=== PATIENT | male | born 1990 | race American Indian/Alaskan Native ===

== ENCOUNTER 2017-01-22 17:21 | Emergency (ER) | payer MEDICAID, OTHER ==
[2017-01-22 17:21] VITALS: BMI 25.8
[2017-01-22 17:28] VITALS: BP 117/62; PULSE 93; RESP 18; TEMP 98; O2SAT 99
[2017-01-22] MEDS ORDERED: Sodium Chloride 0.9% 1,000 ML IV STA (17:55)
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
[2017-01-22 18:26] LABS: BASO # 0.1 K/uL (0.0-0.2); BASO % 0.5 % (0.0-2.0); EOS % 0.2 % (0.0-4.0); HEMOGLOBIN 15.4 g/dL (12.0-18.0); LYMPH # 1.6 K/uL (1.0-4.3); MEAN CELL VOLUME 92.8 fl (80.0-94.0); MEAN CORPUSCULAR HEMOGLOBIN 30.5 pg (27.0-31.0); MEAN CORPUSCULAR HGB CONC 32.9 g/dL (33.0-37.0); MEAN PLATELET VOLUME 8.6 fl (7.2-11.7); MONO # 0.8 K/uL (0.0-0.8); MONO % 7.6 % (0.0-10.0); NEUT # 8.4 K/uL (1.8-7.0); NEUT % 76.7 % (50.0-75.0); RBC 5.06 Mil/uL (4.40-5.90); WHITE BLOOD COUNT 10.9 K/uL (4.8-10.8)
[2017-01-22 18:48] LABS: ALB/GLOB RATIO 1.4 (1.0-2.1); ALBUMIN 4.9 g/dL (3.5-5.0); ALT/SGPT 30 U/L (21-72); AST/SGOT 51 U/L (17-59); BLOOD UREA NITROGEN 14 mg/dl (9-20); GFR AFRICAN-AMERICAN > 60; GFR NON-AFRICAN AMERICAN > 60
[2017-01-22 19:43] LABS: BARBITURATES, UR NEGATIVE (NEGATIVE); OPIATES, UR NEGATIVE (NEGATIVE); PHENCYCLIDINE, UR NEGATIVE (NEGATIVE)
[2017-01-22 20:08] LABS: BENZODIAZEPINES, UR POSITIVE (NEGATIVE)
--- NOTE | 2017-01-23 09:07 | CT ---
PROCEDURE: CT HEAD WITHOUT CONTRAST. HISTORY: Syncope with resultant fall, headache COMPARISON: None available. TECHNIQUE: Axial computed tomography images were obtained through the head/brain without intravenous contrast. Radiation dose: Total exam DLP = 887 mGy-cm. This CT exam was performed using one or more of the following dose reduction techniques: Automated exposure control, adjustment of the mA and/or kV according to patient size, and/or use of iterative reconstruction technique. FINDINGS: HEMORRHAGE: No intracranial hemorrhage. BRAIN: No mass effect or edema. No atrophy or chronic microvascular ischemic changes. VENTRICLES: Unremarkable. No hydrocephalus. CALVARIUM: Unremarkable. PARANASAL SINUSES: Unremarkable as visualized. No significant inflammatory changes. MASTOID AIR CELLS: Unremarkable as visualized. No inflammatory changes. OTHER FINDINGS: None. IMPRESSION: Normal CT of the Head.
--- NOTE | 2017-01-23 09:28 | CT ---
PROCEDURE: CT MAXILLOFACIAL BONES WITHOUT CONTRAST HISTORY: facial pain COMPARISON: None TECHNIQUE: Contiguous axial CT images of the maxillofacial bones were obtained. Coronal and sagittal reformats were generated. Radiation dose: Total exam DLP = 871 mGy-cm. This CT exam was performed using one or more of the following dose reduction techniques: Automated exposure control, adjustment of the mA and/or kV according to patient size, and/or use of iterative reconstruction technique. FINDINGS: NASAL BONES: Unremarkable. ORBITS: Unremarkable. PARANASAL SINUSES/ MASTOIDS: Clear. MAXILLA: Unremarkable. MANDIBLE/ TEMPOROMANDIBULAR JOINTS: Unremarkable. SKULL BASE: Unremarkable. TEMPORAL BONES: Middle ears and mastoid grossly unremarkable. OTHER FINDINGS: Limited left facial soft tissue edema is identified lateral to the left zygomatic arch level. IMPRESSION: No fracture identified. Limited left facial soft tissue edema is identified.
--- NOTE | 2017-01-23 23:33 | CARD ---
APPROVED REPORT EKG Measurement Heart [id number] <Conclusion> Normal sinus rhythm Normal ECG
== END 2017-01-22 22:00 | disposition home or self-care (01) ==
LOC: H.ER 17:21
DX: R56.9 Unspecified convulsions (principal); S09.90XA Unspecified injury of head, initial encounter; W19.XXXA Unspecified fall, initial encounter; Y92.89 Other specified places as the place of occurrence of the external cause

== ENCOUNTER 2017-12-22 14:51 | Emergency (ER) | payer MEDICAID, OTHER ==
[2017-12-22 14:57] VITALS: BMI 28.1
[2017-12-22 14:58] VITALS: BP 154/83; TEMP 97.4; O2SAT 95
[2017-12-22] MEDS ORDERED: Sodium Chloride 0.9% 1,000 ML IV STA (15:07)
--- NOTE | 2017-12-22 15:14 | ED PDOC ---
HPI: Seizure Time Seen by Provider: 12/22/17 15:06 Chief Complaint (Nursing): Seizure Chief Complaint (Provider): Seizure History Per: Patient History/Exam Limitations: no limitations Recent Seizure Activity Began: Just Before Arrival Length Of Seizures (Duration): Unknown Additional Complaint(s): 27 year old male presents to the emergency department via EMS after experiencing a possible seizure that was not witnessed prior to arrival. Patient states he felt dizzy and then "passed out" but does not know for how long, and does not know if he truly had a seizure or not. He does note having a similar episode a year ago and is not currently on any seizure medications. Denies any injury, chest pain and palpitations. PMD: none provided Past Medical History Reviewed: Historical Data, Nursing Documentation, Vital Signs Vital Signs: Last Vital Signs Temp 97.4 F L 12/22/17 14:57 Pulse 119 H 12/22/17 14:57 Resp 22 12/22/17 14:57 BP 154/83 H 12/22/17 14:57 Pulse Ox 95 12/22/17 16:36 - Medical History PMH: No Chronic Diseases Denies: Chronic Kidney Disease - Surgical History Surgical History: No Surg Hx - Family History Family History: States: Unknown Family Hx - Social History Current smoker - smoking cessation education provided: No Alcohol: Social Drugs: Cannabis - Immunization History Hx Tetanus Toxoid Vaccination: No Hx Influenza Vaccination: No Hx Pneumococcal Vaccination: No - Home Medications Home Medications: Ambulatory Orders Medication Instructions Recorded Polymyxin/Trimethoprim Sulfate 1 drop XX Q6H 10 Days bottle 03/19/15 [Polytrim Ophth Soln] Clindamycin HCl 300 mg PO TID #30 cap 06/08/15 Famotidine [Pepcid] 20 mg PO BID #20 tab 09/07/15 Ondansetron [Zofran Odt] 4 mg PO Q8H PRN #15 odt 09/07/15 Doxycycline Hyclate 100 mg PO BID 10 Days tablet 11/01/15 Ibuprofen [Motrin] 600 mg PO TID 7 Days tab 11/01/15 Nitrofurantoin Macrocrystals 100 mg PO BID #10 cap 11/01/15 [Macrobid] Clindamycin [Cleocin] 300 mg PO QID #40 cap 07/03/16 Ibuprofen [Motrin Tab] 800 mg PO Q6H PRN #20 tab 07/03/16 oxyCODONE/Acetaminophen [Percocet 1 ea PO Q6H PRN #15 tab 07/03/16 5/325 mg Tab] - Allergies Allergies/Adverse Reactions: Allergies Allergy/AdvReac Type Severity Reaction Status Date / Time No Known Allergies Allergy Verified 09/07/15 16:28 Review of Systems ROS Statement: Except As Marked, All Systems Reviewed And Found Negative Constitutional: Negative for: Other (injury) Cardiovascular: Negative for: Chest Pain, Palpitations Neurological: Positive for: Seizures (possible, unknown duration), Dizziness Physical Exam - Reviewed Nursing Documentation Reviewed: Yes Vital Signs Reviewed: Yes - Physical Exam Appears: Positive for: No Acute Distress Head Exam: Positive for: ATRAUMATIC, NORMOCEPHALIC Skin: Positive for: Normal Color, Warm, Dry Eye Exam: Positive for: Normal appearance, EOMI, PERRL Neck: Positive for: Normal, Painless ROM, Supple Cardiovascular/Chest: Positive for: Regular Rate, Rhythm. Negative for: Murmur Respiratory: Positive for: Normal Breath Sounds. Negative for: Accessory Muscle Use, Wheezing, Respiratory Distress Gastrointestinal/Abdominal: Positive for: Normal Exam, Soft. Negative for: Tenderness Back: Positive for: Normal Inspection Extremity: Positive for: Normal ROM Neurologic/Psych: Positive for: Alert, Oriented. Negative for: Motor/Sensory Deficits - Laboratory Results Result Diagrams: 12/22/17 15:20 12/22/17 15:20 - ECG O2 Sat by Pulse Oximetry: 95 (RA) Pulse Ox Interpretation: Normal Medical Decision Making Medical Decision Making: Initial Impression: possible seizure Time: 15:07 Initial Plan: --CT Head w/o contrast --EKG --Alcohol serum --Drug screen --CMP --CBC with differential --Sodium chloride 0.9% 1000ml IV --Tylenol 650mg PO --Zofran 4mg PO 16:12 CT Head FINDINGS: HEMORRHAGE: No intracranial hemorrhage. BRAIN: No mass effect or edema. No atrophy or chronic microvascular ischemic changes. VENTRICLES: Unremarkable. No hydrocephalus. CALVARIUM: Unremarkable. PARANASAL SINUSES: Unremarkable as visualized. No significant inflammatory changes. MASTOID AIR CELLS: Unremarkable as visualized. No inflammatory changes. OTHER FINDINGS: None. IMPRESSION: No acute intracranial abnormalities. No significant findings to account for the clinical presentation. Advised 24 hr obs as seizures are most likel;y due to benzodiazepine withdrawal. Pt admits to daily use of street Xanax, last used 2 days ago. Pt does not widsh to remain in hospital. Aware of risks including recurrent seizure and . Pt given referal to detox for benzodiazepines at [facility] Scribe Attestation: Documented by Maru Link, acting as a scribe for Felix Hicks MD. Provider Scribe Attestation: All medical entries made by the Scribe were at my direction and personally dictated by me. I have reviewed the chart and agree that the record accurately reflects my personal performance of the history, physical exam, medical decision making, and the department course for this patient. I have also personally directed, reviewed, and agree with the discharge instructions and disposition. Disposition - Clinical Impression Clinical Impression: Seizure disorder, Drug withdrawal seizure - Patient ED Disposition Is Patient to be Admitted: No - Disposition Referrals: [facility] [Outside] Disposition: Routine/Home Disposition Time: 17:18 Condition: FAIR Instructions: Seizures, Adult (DC), Drug Withdrawal (DC) Forms: [employer] (Sami)
[2017-12-22 15:31] LABS: BASO # 0.1 K/uL (0.0-0.2); BASO % 0.8 % (0.0-2.0); EOS # 0.1 K/uL (0.0-0.7); EOS % 0.9 % (0.0-4.0); HEMOGLOBIN 16.2 g/dL (12.0-18.0); LYMPH # 3.7 K/uL (1.0-4.3); LYMPH % 37.7 % (20.0-40.0); MEAN CORPUSCULAR HEMOGLOBIN 30.9 pg (27.0-31.0); MEAN CORPUSCULAR HGB CONC 32.5 g/dL (33.0-37.0); MEAN PLATELET VOLUME 9.2 fl (7.2-11.7); MONO # 0.8 K/uL (0.0-0.8); MONO % 8.1 % (0.0-10.0); NEUT # 5.2 K/uL (1.8-7.0); NEUT % 52.5 % (50.0-75.0); NRBC % 0.1 % (0.0-0.0); RBC 5.25 Mil/uL (4.40-5.90); WHITE BLOOD COUNT 9.9 K/uL (4.8-10.8)
[2017-12-22 15:42] LABS: ALB/GLOB RATIO 1.4 (1.0-2.1); ALBUMIN 5.3 g/dL (3.5-5.0); ALT/SGPT 39 U/L (21-72); AST/SGOT 43 U/L (17-59); BLOOD UREA NITROGEN 15 mg/dl (9-20); CALCIUM 9.6 mg/dL (8.4-10.2); GFR AFRICAN-AMERICAN > 60; GFR NON-AFRICAN AMERICAN > 60
--- NOTE | 2017-12-22 16:13 | CT ---
PROCEDURE: CT HEAD WITHOUT CONTRAST. HISTORY: Possible seizure COMPARISON: None available. TECHNIQUE: Axial computed tomography images were obtained through the head/brain without intravenous contrast. Coronal and sagittal reconstructed images. Radiation dose: Total exam DLP = 71.21 mGy-cm. This CT exam was performed using one or more of the following dose reduction techniques: Automated exposure control, adjustment of the mA and/or kV according to patient size, and/or use of iterative reconstruction technique. FINDINGS: HEMORRHAGE: No intracranial hemorrhage. BRAIN: No mass effect or edema. No atrophy or chronic microvascular ischemic changes. VENTRICLES: Unremarkable. No hydrocephalus. CALVARIUM: Unremarkable. PARANASAL SINUSES: Unremarkable as visualized. No significant inflammatory changes. MASTOID AIR CELLS: Unremarkable as visualized. No inflammatory changes. OTHER FINDINGS: None. IMPRESSION: No acute intracranial abnormalities. No significant findings to account for the clinical presentation.
[2017-12-22 16:44] LABS: VENOUS BLOOD GAS BASE EXCESS -0.2 mmol/L (0.0-2.0); VENOUS BLOOD GAS PCO2 58 mmHg (40-60); VENOUS BLOOD GAS PO2 23 mm/Hg (30-55); VENOUS BLOOD PH 7.29 (7.32-7.43)
[2017-12-22 16:57] LABS: CALCIUM 9.8 mg/dL (8.4-10.2)
[2017-12-22 17:32] VITALS: PULSE 72; RESP 18
[2017-12-22 18:05] LABS: BARBITURATES, UR NEGATIVE (NEGATIVE); BENZODIAZEPINES, UR POSITIVE (NEGATIVE); OPIATES, UR NEGATIVE (NEGATIVE); PHENCYCLIDINE, UR NEGATIVE (NEGATIVE)
--- NOTE | 2017-12-25 11:43 | CARD ---
APPROVED REPORT EKG Measurement Heart [id number] <Conclusion> Normal sinus rhythm Biatrial enlargement Abnormal ECG
== END 2017-12-22 17:31 | disposition home or self-care (01) ==
LOC: H.ER 14:51
DX: F13.239 Sedative, hypnotic or anxiolytic dependence with withdrawal, unspecified (principal); G40.909 Epilepsy, unspecified, not intractable, without status epilepticus
CPT/HCPCS: 70450; 80053; 80320; 80324; 80345; 80346; 80349; 80353; 80358; 80361; 82310; 82803; 82948; 83735; 83992; 85025; 93005; 99285; J7030

== ENCOUNTER 2018-02-17 02:51 | Emergency (ER) | payer MEDICAID ==
[2018-02-17 03:00] VITALS: BMI 25.8
[2018-02-17 03:30] VITALS: BP 126/81; PULSE 98; RESP 16; TEMP 98.1; O2SAT 99
[2018-02-17] MEDS ORDERED: Naproxen 500 MG TAB PO STA (04:43)
[2018-02-17] MEDS ORDERED: Tmp-Smz 800 mg-160 mg DS Tab PO STA (04:43)
--- NOTE | 2018-02-17 04:55 | ED PDOC ---
HPI: Skin/Bite Injury Time Seen by Provider: 02/17/18 03:28 Chief Complaint (Nursing): Abnormal Skin Integrity History Per: Patient History/Exam Limitations: no limitations Additional Complaint(s): 27 yo M presents c/o painful, swollen lump to the sacral area for the past few days, states that he has had similar symptoms in the past and he states that it drained and resolved on its own. Denies fevers, chills, trauma, injury, N/V, abdominal pain, back pain. Has no other complaints. Past Medical History Vital Signs: Last Vital Signs Temp 98.1 F 02/17/18 03:27 Pulse 98 H 02/17/18 03:27 Resp 16 02/17/18 03:27 BP 126/81 02/17/18 03:27 Pulse Ox 99 02/17/18 03:27 - Medical History PMH: Denies: Chronic Kidney Disease - Family History Family History: States: Unknown Family Hx - Immunization History Hx Tetanus Toxoid Vaccination: Yes (UTD) Hx Influenza Vaccination: No Hx Pneumococcal Vaccination: No - Home Medications Home Medications: Ambulatory Orders Medication Instructions Recorded Polymyxin/Trimethoprim Sulfate 1 drop XX Q6H 10 Days bottle 03/19/15 [Polytrim Ophth Soln] Clindamycin HCl 300 mg PO TID #30 cap 06/08/15 Famotidine [Pepcid] 20 mg PO BID #20 tab 09/07/15 Ondansetron [Zofran Odt] 4 mg PO Q8H PRN #15 odt 09/07/15 Doxycycline Hyclate 100 mg PO BID 10 Days tablet 11/01/15 Ibuprofen [Motrin] 600 mg PO TID 7 Days tab 11/01/15 Nitrofurantoin Macrocrystals 100 mg PO BID #10 cap 11/01/15 [Macrobid] Clindamycin [Cleocin] 300 mg PO QID #40 cap 07/03/16 Ibuprofen [Motrin Tab] 800 mg PO Q6H PRN #20 tab 07/03/16 oxyCODONE/Acetaminophen [Percocet 1 ea PO Q6H PRN #15 tab 07/03/16 5/325 mg Tab] Cephalexin [Keflex] 500 mg PO Q6 #28 capsule 02/17/18 Naproxen 500 mg PO BID #30 tab 02/17/18 Sulfamethoxazole/Trimethoprim 2 tab PO BID #28 tab 02/17/18 [Bactrim DS 800 mg-160 mg] - Allergies Allergies/Adverse Reactions: Allergies Allergy/AdvReac Type Severity Reaction Status Date / Time No Known Allergies Allergy Verified 09/07/15 16:28 Review of Systems Constitutional: Negative for: Fever, Malaise Musculoskeletal: Negative for: Neck Pain, Back Pain Skin: Positive for: Other (abscess). Negative for: Rash, Lesions Physical Exam - Reviewed Vital Signs Reviewed: Yes - Physical Exam Appears: Positive for: Well, Non-toxic, In Acute Distress (+mild painful distress) Skin: Positive for: Normal Color, Warm, Dry. Negative for: Rash Back: Positive for: Normal Inspection, Other (+soft tender fluctuant mass to the sacral area ~3.5 cm in size). Negative for: Vertebral Tenderness Extremity: Positive for: Normal ROM. 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 Negative for: Motor/Sensory Deficits - ECG O2 Sat by Pulse Oximetry: 99 Medical Decision Making Medical Decision Making: Plan : - keflex po - bactrim ds po - naprosyn po - wound cx Patient advised that he has an abscess that will need I&D, risk and benefits of I&D explained to the patient, however he is refusing I&D at this time. He is agreeable to aspirating the abscess with an 18 g needle to remove pus. 18 g needle was introduced into the abscess and 40 cc of yellow purulent material was removed. Patient advised to reconsider I&D, however he is still refusing. Patient instructed to follow-up with pmd or referral provided in 1-2 days without fail. Advised to take medication as prescribed. Return to the emergency room at any time for any new or worsening symptoms. Patient states he fully agrees with and understands discharge instructions. States that he agrees with the plan and disposition. Verbalized and repeated discharge instructions and plan. I have given the patient opportunity to ask any additional questions. Disposition - Clinical Impression Clinical Impression: Abscess - Patient ED Disposition Is Patient to be Admitted: No Counseled Patient/Family Regarding: Studies Performed, Diagnosis, Need For Followup, Rx Given - Disposition Referrals: [facility] [Outside] Connie Martinez MD [Staff Provider] - Disposition: Routine/Home Disposition Time: 05:00 Condition: STABLE Additional Instructions: Thank you for letting us take care of you today. You were treated for abscess. The emergency medical care you received today was directed towards the acute presenting symptoms. Apply warm compresses. If you were prescribed any medication, please fill it and give as directed. It may take several days for your symptoms to resolve. Return to the Emergency Department at any time if symptoms worsen, do not improve, or if any other problems arise. Please call one of the physicians/clinics you have been referred to that are listed on the Patient Visit Information form that is included in your discharge packet. Bring any paperwork you were given at discharge with you along with any medications to your follow up visit. Our treatment cannot replace ongoing medical care by a primary care provider (PCP) outside of the emergency department. Thank you for allowing the [facility] team to be part of your care today. If you had a wound culture test done : We will call you regarding any positive results Prescriptions: Cephalexin [Keflex] 500 mg PO Q6 #28 capsule Naproxen 500 mg PO BID #30 tab Sulfamethoxazole/Trimethoprim [Bactrim DS 800 mg-160 mg] 2 tab PO BID #28 tab Instructions: Skin Abscess - PA / MANAGER [employer] / Resident Statement / has reviewed & agrees with the documentation as recorded.
[2018-02-17] MEDS ORDERED: Naproxen 500 MG TAB PO ONE (04:57)
[2018-02-17] MEDS ORDERED: Tmp-Smz 800 mg-160 mg DS Tab ONE (04:57)
== END 2018-02-17 05:34 | disposition home or self-care (01) ==
LOC: H.ER 02:51
DX: L02.212 Cutaneous abscess of back [any part, except buttock and flank] (principal)

== ENCOUNTER 2018-11-22 18:14 | Emergency (ER) | payer MEDICAID ==
[2018-11-22 18:14] VITALS: BMI 25.8
[2018-11-22] MEDS ORDERED: Sodium Chloride 0.9% 1,000 ML IV ONE (19:43)
[2018-11-22] MEDS ORDERED: Piperacillin/Tazobact 3.375 GM in Sodium Chloride 0.9% 100 ML IVPB STA (19:43)
[2018-11-22] MEDS ORDERED: Tdap Vaccine 0.5 ml Vial (10-64 yrs) IM ONE (19:43)
--- NOTE | 2018-11-22 19:53 | ED PDOC ---
HPI: Skin/Bite Injury Time Seen by Provider: 11/22/18 19:11 Chief Complaint (Nursing): Abnormal Skin Integrity Chief Complaint (Provider): Abnormal Skin Integrity History Per: Patient History/Exam Limitations: no limitations Onset/Duration Of Symptoms: Days Current Symptoms Are (Timing): Still Present Additional Complaint(s): 28 y/o male presents to the ED for evaluation of a worsening abscess to the lower back / top of the buttock for the last two to three days. Patient states he has had similar episodes of this in the past and was prescribed antibiotics which he would take until he felt better and then stop. Patient notes his most recent antibiotic course was one year and a half ago that he did not complete. Patient reports he started taking the remainder of this unknown antibiotic medication yesterday. Patient notes he has taken three doses so far. Patient states abscess began draining a small amount of pus today. Otherwise: (-) fever, (-) chills, (-) abdominal pain, (-) nausea, (-) vomiting, (-) diarrhea (-) headache (-) dizziness. PMD: no provider Tetanus: not UTD Past Medical History Reviewed: Historical Data, Nursing Documentation, Vital Signs Vital Signs: Last Vital Signs Temp 98.4 F 11/22/18 19:06 Pulse 93 H 11/22/18 19:06 Resp 16 11/22/18 19:06 BP 101/65 11/22/18 19:06 Pulse Ox 96 11/22/18 19:06 Primary Care Provider: FAMILY PROVIDER,NO - Medical History PMH: No Chronic Diseases - Surgical History Surgical History: No Surg Hx - Family History Family History: States: Unknown Family Hx - Social History Current smoker - smoking cessation education provided: Yes (3 cigars per day) Alcohol: Other (drinks every other day) Drugs: Cannabis - Home Medications Home Medications: Ambulatory Orders Medication Instructions Recorded Polymyxin/Trimethoprim Sulfate 1 drop XX Q6H 10 Days bottle 03/19/15 [Polytrim Ophth Soln] Clindamycin HCl 300 mg PO TID #30 cap 06/08/15 Famotidine [Pepcid] 20 mg PO BID #20 tab 09/07/15 Ondansetron [Zofran Odt] 4 mg PO Q8H PRN #15 odt 09/07/15 Doxycycline Hyclate 100 mg PO BID 10 Days tablet 11/01/15 Ibuprofen [Motrin] 600 mg PO TID 7 Days tab 11/01/15 Nitrofurantoin Macrocrystals 100 mg PO BID #10 cap 11/01/15 [Macrobid] Clindamycin [Cleocin] 300 mg PO QID #40 cap 07/03/16 Ibuprofen [Motrin Tab] 800 mg PO Q6H PRN #20 tab 07/03/16 oxyCODONE/Acetaminophen [Percocet 1 ea PO Q6H PRN #15 tab 07/03/16 5/325 mg Tab] Cephalexin [Keflex] 500 mg PO Q6 #28 capsule 02/17/18 Naproxen 500 mg PO BID #30 tab 02/17/18 Sulfamethoxazole/Trimethoprim 2 tab PO BID #28 tab 02/17/18 [Bactrim DS 800 mg-160 mg] Amoxicillin [Amoxil 500 mg Cap] 500 mg PO Q8 #30 cap 11/05/18 Fluticasone Propionate [Flonase] 1 spr NS BID #1 spr 11/05/18 Ibuprofen [Motrin Tab] 600 mg PO Q8 #30 tab 11/05/18 Ondansetron ODT [Zofran ODT] 4 mg PO Q6 #12 odt 11/05/18 Cephalexin [Keflex] 500 mg PO TID #21 capsule 11/22/18 Ibuprofen [Motrin Tab] 800 mg PO Q8 PRN #21 tab 11/22/18 Sulfamethoxazole/Trimethoprim 1 tab PO BID #14 tab 11/22/18 [Bactrim DS 800 mg-160 mg] traMADol [Ultram] 50 mg PO Q6 PRN #12 tab 11/22/18 - Allergies Allergies/Adverse Reactions: Allergies Allergy/AdvReac Type Severity Reaction Status Date / Time No Known Allergies Allergy Verified 11/22/18 19:09 Review of Systems ROS Statement: Except As Marked, All Systems Reviewed And Found Negative Skin: Positive for: Other (abscess) Physical Exam - Reviewed Nursing Documentation Reviewed: Yes Vital Signs Reviewed: Yes - Physical Exam Comments: GENERAL APPEARANCE: Patient is awake, alert, oriented x 3, uncomfortable appearing. Skin: warm and dry, (+) erythema, induration, and tenderness to the gluteal cleft extending bilaterally to the superior aspect of the buttocks. (+) small purulent drainage noted to the interior superior aspect of the right buttock. NECK: Supple, FROM ENT: Mucus membranes moist. Airway patent, (-)stridor. Pulmonary: lungs clear to auscultation bilaterally, no rhonchi, no wheezing, no rales. Respirations even and nonlabored. Cardiac: regular rate and rhythm Abdomen: soft, nontender. Extremities: no deformity - Laboratory Results Result Diagrams: 11/22/18 20:20 11/22/18 20:20 - ECG O2 Sat by Pulse Oximetry: 96 (RA) Pulse Ox Interpretation: Normal Medical Decision Making Medical Decision Making: Time: 1944 Impression: Pilonidal abscess and cellulitis Plan: -- CT Pelvis w/ IV Contrast ONLY -- CMP -- Lact Acid, Plasma -- CBC with Differentials -- Adacel 0.5 ml IM -- Sodium Chloride IV 1000 mls/hr -- Toradol 30 mg IVP -- Vancomycin Inj 1 gm Sodium Chloride 0.9% 250 ml IVPB -- Zosyn 3.375 gm Sodium Chloride 0.9% 100 ml IVPB -- Blood Culture -- Wound Culture and Gram Stain -- IV Insertion Time: 2144 EXAM: CT Pelvis with IV contrast CLINICAL HISTORY: Pilonidal abcess/ cellulitis TECHNIQUE: Axial computed tomography images of the pelvis with intravenous contrast. 577.75 mGy-cm CONTRAST: With intravenous contrast. COMPARISON: None provided. FINDINGS: APPENDIX: No evidence of acute appendicitis on CT examination. PERITONEUM: No free fluid. No free air. LYMPH NODES: No lymphadenopathy is evident. REPRODUCTIVE: Unremarkable as visualized. VASCULATURE: No evidence of abdominal aortic aneurysm. BLADDER: The urinary bladder appears normal in size and configuration. BONES: No aggressive appearing osseous lesion. No acute osseous pathology evident. No periosteal elevation seen to indicate osteomyelitis. SOFT TISSUES: In the soft tissues posterior to the sacrococcygeal region within the inferior right gluteal fold and midline; there is identified a large subdermal and subcutaneous collection measuring approximately 3.8 x 5.0 x 2.7 cm compatible with pilonidal abscess/cellulitis. There is no evidence of perirectal or perianal abscess formation. No subcutaneous emphysema detected. IMPRESSION: 1. There is demonstration of a pilonidal abscess and cellulitis involving the lower right gluteal fold-midline soft tissues overlying the sacrococcygeal region as described above. Electronically signed on November 22, 2018 9:45:53 PM EDT by: Ryne Grewal M.D., M.B.A., Certified By [employer] Trained MRI and CT Specialist In light of CT findings, consult placed to Dr Vance, general surgery office 365 consultant. Labs reviewed, slight leukocytosis. Lactic Acid WNL. Patient resting comfortably on re-evaluation, no additional complaints. [address] Vance who states patient can follow up outpatient to schedule surgery and in the meantime is to be seen by residential care officer. Consult placed to residential care officer, Dr Drake, who is currently in OR procedure at [facility] and unable to do consult at bedside. Eladia ALVARADO attempted to perform I&D and while discussing the procedure and offering extensive explanation to patient, patient refused procedure. IV Abx infusing. 0 Patient resting comfortably, eating. No complaints offered. 2329 On re-evaluation, patient reports improvement of symptoms. On exam, patient remains AAOx3, in no acute distress. VSS, stable for discharge. Lab/Diagnostic results d/w the patient in great detail. Diagnosis of pilonidal abscess and cellulitis d/w the patient. Return parameters discussed. Based on history, exam and diagnostic results, plan will be for outpatient follow up with general surgery. Patient instructed to follow-up with pmd / referral provided / the clinic in 1- 2 days without fail. Advised to take medication as prescribed. Return to the emergency room at any time for any new or worsening symptoms. Patient states he fully agrees with and understands discharge instructions. States that he agrees with the plan and disposition. Verbalized and repeated discharge instructions and plan. I have given the patient opportunity to ask any additional questions. Scribe Attestation: Documented by Alana Cruz, acting as a scribe Vinicio Montilla PA-C. Provider Scribe Attestation: All medical record entries made by the Scribe were at my direction and personally dictated by me. I have reviewed the chart and agree that the record accurately reflects my personal performance of the history, physical exam, medical decision making, and the department course for this patient. I have also personally directed, reviewed, and agree with the discharge instructions and disposition. Disposition - Clinical Impression Clinical Impression: Pilonidal abscess, Cellulitis - Patient ED Disposition Is Patient to be Admitted: No Discussed With Dr.: Koby Vance Doctor Will See Patient In The: Office Counseled Patient/Family Regarding: Studies Performed, Diagnosis, Need For Followup, Rx Given - Disposition Referrals: Koby Vance MD [Staff Provider] - Disposition: Routine/Home Disposition Time: 23:40 Condition: STABLE Additional Instructions: The emergency medical care you received today was directed at your acute symptoms. If you were prescribed any medication, please fill it and take as directed. It may take several days for your symptoms to resolve. Return to the Emergency Department if your symptoms worsen, do not improve, or if you have any other problems. Please contact your doctor in 2 days for re-evaluation and follow up / or call one of the physicians/clinics you have been referred to that are listed on the Patient Visit Information form that is included in your discharge packet. Bring any paperwork you were given at discharge with you along with any medications you are taking to your follow up visit. Our treatment cannot replace ongoing medical care by a primary care provider (PCP) outside of the emergency department. Prescriptions: Cephalexin [Keflex] 500 mg PO TID #21 capsule Ibuprofen [Motrin Tab] 800 mg PO Q8 PRN #21 tab PRN Reason: Pain, Moderate (4-7) Sulfamethoxazole/Trimethoprim [Bactrim DS 800 mg-160 mg] 1 tab PO BID #14 tab traMADol [Ultram] 50 mg PO Q6 PRN #12 tab PRN Reason: Pain, Severe (8-10) Instructions: Cellulitis and Erysipelas (Skin Infections), Pilonidal Cyst, Wo und Care, Opioids for Short-Term Treatment of Pain, Taking Narcotics Safely Forms: flux - neutrinity (Vietnamese) Print Language: KYRGYZ - POA Present On Arrival: None Results - Lab Results Lab Results: 11/22/18 11/22/18 11/22/18 20:20 20:20 20:20 WBC 12.9 H RBC 4.90 Hgb 14.8 Hct 45.3 MCV 92.5 D MCH 30.3 MCHC 32.8 L RDW 13.6 Plt Count 203 MPV 8.8 Neut % (Auto) 69.4 Lymph % (Auto) 20.2 [place] % (Auto) 8.9 Eos % (Auto) 0.8 Baso % (Auto) 0.7 Neut # (Auto) 8.9 H Lymph # (Auto) 2.6 [place] # (Auto) 1.2 H Eos # (Auto) 0.1 Baso # (Auto) 0.1 Sodium 138 Potassium 3.9 Chloride 96 L Carbon Dioxide 30 Anion Gap 16 BUN 14 Creatinine 1.1 Est GFR ( Amer) > 60 Est GFR (Non-Af Amer) > 60 Random Glucose 94 Lactic Acid 1.1 Calcium 9.3 Total Bilirubin 0.9 AST 32 ALT 33 Alkaline Phosphatase 65 Total Protein 8.6 H Albumin 4.9 Globulin 3.7 Albumin/Globulin Ratio 1.3
[2018-11-22] MEDS ORDERED: Iohexol 300 100 ML IJ ONE (20:17)
[2018-11-22] MEDS ORDERED: Sodium Chloride 0.9% 50 ML IV ONE (20:18)
[2018-11-22 20:31] LABS: BASO # 0.1 K/uL (0.0-0.2); BASO % 0.7 % (0.0-2.0); EOS # 0.1 K/uL (0.0-0.7); EOS % 0.8 % (0.0-4.0); HEMOGLOBIN 14.8 g/dL (12.0-18.0); LYMPH # 2.6 K/uL (1.0-4.3); LYMPH % 20.2 % (20.0-40.0); MEAN CELL VOLUME 92.5 fl (80.0-94.0); MEAN CORPUSCULAR HEMOGLOBIN 30.3 pg (27.0-31.0); MEAN CORPUSCULAR HGB CONC 32.8 g/dL (33.0-37.0); MEAN PLATELET VOLUME 8.8 fl (7.2-11.7); MONO # 1.2 K/uL (0.0-0.8); MONO % 8.9 % (0.0-10.0); NEUT # 8.9 K/uL (1.8-7.0); NEUT % 69.4 % (50.0-75.0); RBC 4.9 Mil/uL (4.40-5.90); RED CELL DISTRIBUTION WIDTH 13.6 % (11.5-14.5); WHITE BLOOD COUNT 12.9 K/uL (4.8-10.8)
[2018-11-22 20:41] LABS: ALB/GLOB RATIO 1.3 (1.0-2.1); ALBUMIN 4.9 g/dL (3.5-5.0); ALT/SGPT 33 U/L (21-72); AST/SGOT 32 U/L (17-59); BLOOD UREA NITROGEN 14 mg/dl (9-20); CALCIUM 9.3 mg/dL (8.4-10.2); GFR NON-AFRICAN AMERICAN > 60
[2018-11-22] MEDS ORDERED: Piperacillin/Tazobact 3.375 gm Inj IVPB ONE (21:31)
[2018-11-22] MEDS ORDERED: Vancomycin 1 g Inj ONE (21:31)
[2018-11-23 00:03] VITALS: BP 102/78; PULSE 88; RESP 18; TEMP 98.2
--- NOTE | 2018-11-23 07:28 | CT ---
Date of service: 11/22/2018 PROCEDURE: CT Pelvis with contrast HISTORY: pilonidal abscess/cellulitis COMPARISON: None available. TECHNIQUE: Contiguous axial images of the pelvis with contrast. Coronal and sagittal reformats generated. Contrast dose: 95 mL of Omnipaque 300 intravenously Radiation dose: Total exam DLP = 577.75 mGy-cm. This CT exam was performed using one or more of the following dose reduction techniques: Automated exposure control, adjustment of the mA and/or kV according to patient size, and/or use of iterative reconstruction technique. FINDINGS: BLADDER: Unremarkable. No mass. REPRODUCTIVE ORGANS: Unremarkable. VISUALIZED BOWEL: Unremarkable. PERITONEUM: Unremarkable, as visualized. No free fluid. No free air. LYMPH NODES: Mildly enlarged right inguinal lymph nodes are noted likely reactive. VASCULATURE: No aortic atherosclerotic calcification or mural plaque present. BONES: No fracture or focal lesion. OTHER FINDINGS: There is subcutaneous enhancing wall fluid collection surrounding with inflammatory changes seen at midline and to the right of the midline at the level of the sacral coccyx junction. There is enhancing wall fluid collection measures 4.6 centimeter in the largest transverse diameter and 2.4 centimeter in the AP diameter and likely represent infected pilonidal cyst/pilonidal abscess. There is adjacent skin and subcutaneous thickening suggestive of cellulitis. No evidence of perirectal or perianal abscess or fistula. No evidence of osteomyelitis. IMPRESSION: Subcutaneous abscess formation at the midline and to the right of the midline at the level of the sacrococcygeal junction likely representing pilonidal abscess and cellulitis. Preliminary report was submitted by [facility] Radiology contains concordant findings.
[2018-11-23 18:28] VITALS: O2SAT 96
== END 2018-11-23 00:05 | disposition home or self-care (01) ==
LOC: H.ER 18:14
DX: L05.01 Pilonidal cyst with abscess (principal); L03.90 Cellulitis, unspecified
CPT/HCPCS: 72193; 80053; 83605; 85025; 87040; 87070; 96365; 96367; 96375; 99284; J1885; J2543; J7040; Q9967